=== PATIENT | male | born 1995 | race Caucasian/White ===

== ENCOUNTER 2021-07-10 14:41 | Emergency (ER) | payer MEDICARE, OTHER ==
[~2021-07-10 14:41] MED LIST: ZPAK PO
[2021-07-10] MEDS ORDERED: NAPROXEN500 MG PO (16:33)
== END 2021-07-10 17:01 | disposition home or self-care (01) ==
LOC: FER 14:41
DX: M75.101 Unspecified rotator cuff tear or rupture of right shoulder, not specified as traumatic (principal); I10 Essential (primary) hypertension
CPT/HCPCS: 73030